=== PATIENT | male | born 1985 | race Caucasian/White ===

== ENCOUNTER 2020-06-27 11:44 | Emergency (ER) | payer MEDICAID ==
[~2020-06-27] VITALS: Ht 182.9 cm; Wt 81.6 kg
[2020-06-27 11:44] VITALS: BP 140/83
--- NOTE | 2020-06-27 11:50 | NUR ---
PER PT HE CAN NOT WAIT ANYMORE WANTS TO LEAVE. MD AWARE.
--- NOTE | 2020-06-27 11:56 | NUR ---
Patient eloped from facility. ER MD notified.
== END 2020-06-27 11:56 | disposition left against medical advice (07) ==
LOC: ER 11:49
DX: F41.9 Anxiety disorder, unspecified (principal); Z53.21 Procedure and treatment not carried out due to patient leaving prior to being seen by health care provider